=== PATIENT | male | born 1965 | race Caucasian/White ===

== ENCOUNTER 2022-04-09 19:54 | Emergency (ER) | payer OTHER, SELFPAY ==
[2022-04-09 19:58] VITALS: BP 142/86; PULSE 62; RESP 20; TEMP 36.8; O2SAT 100
--- NOTE | 2022-04-09 21:07 | PC.NURSE ---
Pt reports they are scared, fearful, freaked out then goes on to talk taking his contacts in and out.
--- NOTE | 2022-04-09 21:22 | PC.NURSE ---
VORB 1mg PO ativan.
[2022-04-09] MEDS: LORazepam (*CRX) 1 MG TABLET PO (21:24)
--- NOTE | 2022-04-09 21:33 | ED.GENADULT ---
HPI - General Adult General Chief complaint: Anxiety Stated complaint: anxious/manic Time Seen by Provider: 04/09/22 21:13 History of Present Illness HPI narrative: This is a 56-year-old male with history of generalized anxiety disorder presenting to ED with severe anxiety. The patient has had his anxiety increasing steadily over the last several weeks. Patient notes that he has stopped taking his anti anxiety meds. Earlier today his friends went duck hunting the patient was so anxious he was unable to go. The patient denies homicidal or suicidal ideation. Denies auditory or visual hallucinations. He has poor insight into his condition and is unable to link his cessation of medication to his current state. He denies any physical complaints at this time. patient denies use of drugs or alcohol. Related Data Home Medications Medication Instructions Recorded Confirmed carvedilol 25 mg tablet mg 04/09/22 clonazepam 0.5 mg tablet mg 04/09/22 04/09/22 fenofibrate nanocrystallized 145 mg PO 04/09/22 mg tablet fluvoxamine 25 mg tablet mg 04/09/22 lisinopril 40 mg tablet mg 04/09/22 paroxetine HCl 10 mg tablet mg PO 04/09/22 pravastatin 40 mg tablet mg 04/09/22 venlafaxine 75 mg capsule,extended mg PO 04/09/22 release 24 hr Allergies Allergy/AdvReac Type Severity Reaction Status Date / Time No Known Drug Allergies Allergy Unknown Verified 04/09/22 20:26 Review of Systems Review of Systems: CONSTITUTIONAL: Denies night sweats. EYES: No eye pain ENT: Denies rhinorrhea CARDIOVASCULAR: Denies palpitations RESPIRATORY: Denies hemoptysis GASTROINTESTINAL: Denies hematemesis GENITOURINARY: Denies hematuria. SKIN: Denies rash MUSCULOSKELETAL: Denies myalgia. NEUROLOGIC: Denies weakness. PSYCHIATRIC: Denies delusions PMFSH Past Medical History Medical History Generalized anxiety disorder Social History Social History Substance use type: does not use Exam Narrative: APPEARANCE: patient appears anxious and is tearful during the interview. He requires constant redirection. He keeps talking about duck hunting at [facility]. Head atraumatic. EYES: PERRLA/EOMI, NOSE: Normal no drainage NECK: Supple, Trachea midline RESPIRATORY: CTAB, No increased work of breathing. CARDIOVASCULAR: S1S2 appreciated ABDOMINAL: Soft, nontender, nondistended, MUSCULOSKELETAl: No obvious deformities NEURO: Alert. Moving 4/4 extremities SKIN:: Warm, dry. Normal color PSYCHIATRIC: Patient is tearful, he has poor insight into his condition. He is fixated on duck hunting Course Vital Signs Vital signs: Vital Signs Temperature 98.3 F 04/09/22 19:58 Pulse Rate 62 04/09/22 19:58 Respiratory Rate 20 04/09/22 19:58 Blood Pressure 142/86 H 04/09/22 19:58 Pulse Oximetry 100 04/09/22 19:58 Temperature 98.3 F 04/09/22 19:58 Pulse Rate 62 04/09/22 19:58 Respiratory Rate 20 04/09/22 19:58 Blood Pressure 142/86 H 04/09/22 19:58 Pulse Oximetry 100 04/09/22 19:58 Medical Decision Making MDM Narrative Medical decision making narrative: This is a 56-year-old male with severe generalized anxiety disorder. He has been not taking his anxiety meds and is now incapable of performing his basic daily activities like going to work or duck hunting. screening lab work was ordered and was negative. Stent patient is medically cleared for evaluation by the crisis center. Patient was evaluated by the crisis Center and they feel that he can be safely discharged home with medication reconciliation and outpatient follow-up. I sat down discuss the patient's medications with him at length as well as when and how to take his anti anxiety meds. This was also explained to his family who agree to help him with them. Patient will be discharged home. Vital Signs Vital Signs: Vital Signs
[2022-04-09 21:55] LABS: Basophils Absolute Auto 0.1 K/mm3 (0.0-0.1); Eosinophils Absolute Auto 0.1 K/mm3 (0-0.3); Eosinophils Percent Auto 1.3 % (0-4.4); Hemoglobin 12.8 g/dL (14.0-18.0); Immature Granulocyte Absolute 0.06 K/mm3 (0.00-0.031); Immature Granulocyte Percent A 0.6 % (0-0.5); Lymphocytes Absolute Auto 2.11 K/mm3 (0.9-3.2); Mean Corpuscular HGB Conc 33.7 g/dl (32-36); Mean Corpuscular Hemoglobin 29.1 pg (26-34); Mean Corpuscular Volume 86.4 fl (80-100); Mean Platelet Volume 9.8 fl (7.4-10.4); Monocytes Percent Auto 9.7 % (2.6-8.5); Neutrophils Absolute Auto 6.7 K/mm3 (1.3-6.7); Neutrophils Percent Auto 66.4 % (45.5-73.1); Platelet Count Result 305 k/mm3 (150-375); Red Cell Distribution Width 13.6 % (11.5-14.5); White Blood Count 10.1 K/mm3 (4.5-10.0)
[2022-04-09 22:07] LABS: Alanine Aminotransferase 37 U/L (6-50); Albumin Level 4.1 g/dL (3.5-5.1); Alkaline Phosphatase 49 U/L (38-126); Anion Gap 14 mmol/L (8-16); Aspartate Amino Transferase 34 U/L (17-59); Bilirubin,Total 0.7 mg/dL (0.2-1.3); Blood Urea Nitrogen 27 mg/dL (9-20); Calcium 9.3 mg/dL (8.4-10.2); Carbon Dioxide 22 mmol/L (22-30); Chloride 103 mmol/L (98-107); Estimated CRCL calculation 64 ml/min; Estimated Glomerular Filt Rate 57; Ethanol < 10 mg/dL (<10); Glucose 105 mg/dL (65-110); Potassium 3.7 mmol/L (3.4-5.0); Sodium 139 mmol/L (137-145)
[2022-04-09 22:31] LABS: SARS-CoV-2 RNA PCR Negative
--- NOTE | 2022-04-09 22:34 | PC.NURSE ---
Pt's mother at bedside stated pt is acting crabby and not his normal. They report pt states I don't want to go to hell I want to go to heaven like my dad. Pt is in the restroom at this time.
[2022-04-09 22:39] LABS: Thyroid Stimulating Hormone 0.765 uIU/mL (0.465-4.680)
[2022-04-09 22:53] LABS: Add Urine Microscopic? YES; Appearance Urine Cloudy (Clear); Bacteria Urine Trace /hpf; Bilirubin Urine Negative (Negative); Blood Urine Negative (Negative); Color Urine Amber (Yellow); Glucose Urine UA Negative (Negative); Hyaline Casts Urine 20-29 /lpf; Ketones Urine Negative (Negative); Leukocyte Esterase Ur Negative LEU/UL (Negative); Mucus Urine Heavy /lpf; Nitrate Urine Negative (Negative); Protein Urine Negative (Negative); Specific Grav Ur 1.027 (1.001-1.035); Squamous Epithelial Cell Urine Occasional /hpf (Few)
--- NOTE | 2022-04-09 22:57 | PC.NURSE ---
Report received from WAYNE Rondon. Assumed care of patient at this time.
[2022-04-09 23:05] LABS: Amphetamine Screen Urine Negative (Negative); Barbiturate Screen Urine Negative (Negative); Benzodiazepines Screen Urine Negative (Negative); Cannabinoid Screen Urine Negative (Negative); Cocaine Screen Urine Negative (Negative); Methadone Screen Urine Negative (Negative); Opiate Screen Urine Negative (Negative); Phencyclidine Screen Urine Negative (Negative)
== END 2022-04-10 01:33 | disposition home or self-care (01) ==
PROVIDERS: Emergency Provider Emergency Medicine; PCP Emergency Medicine
DX: F41.1 Generalized anxiety disorder (principal); Z20.822 Contact with and (suspected) exposure to COVID-19
CPT/HCPCS: 36415; 80053; 80307; 81001; 84443; 85025; 87086; 87088; 99284; A9270; C9803; U0003; U0005